=== PATIENT | male | born 1985 | race African-American/Black ===

== ENCOUNTER 2017-10-12 06:51 | Emergency (ER) | payer OTHER ==
[~2017-10-12] VITALS: Ht 182.9 cm; Wt 89.8 kg
[~2017-10-12 06:51] MED LIST: AMOXICILLIN 50500 MG PO; AUGMENTIN 875875 MG PO; NOHOMEMEDICATIONS; NORCO 5-325 TA1 EACH PO; PREDNISONE 20 M20 M1 PO; PREDNISONE 20 M20 MG PO; PREDNISONE50 MG PO; PROAIR HFA8.5 GM IH; PROVENTIL HFA6.7 G1 INH; VENTOLIN HFA 1818 GM INH
[2017-10-12 07:00] VITALS: BP 127/91
[2017-10-12] MEDS ORDERED: VENTOLIN HFA 1818 GM INH (07:09)
[2017-10-12] MEDS ORDERED: IPRATROPIU0.2 MG/1 M INH (07:09)
[2017-10-12] MEDS ORDERED: PREDNISONE 20 M20 MG PO (07:09)
[2017-10-12] MEDS ORDERED: ALBUTEROL2.5 MG/31 INH (07:09)
== END 2017-10-12 07:35 | disposition home or self-care (01) ==
LOC: ER 06:51
DX: J45.901 Unspecified asthma with (acute) exacerbation (principal); Z87.891 Personal history of nicotine dependence

== ENCOUNTER 2018-01-26 11:23 | Emergency (ER) | payer BC, OTHER ==
[~2018-01-26] VITALS: Ht 182.9 cm; Wt 93.0 kg
[~2018-01-26 11:23] MED LIST changes: +ALBUTEROL2.5 MG/31 INH; +IPRATROPIU0.2 MG/1 M INH
[2018-01-26 11:24] VITALS: BP 143/96
[2018-01-26] MEDS ORDERED: PREDNISONE 20 M20 MG PO (12:07)
[2018-01-26] MEDS ORDERED: VENTOLIN HFA 1818 GM INH (12:07)
== END 2018-01-26 12:20 | disposition home or self-care (01) ==
LOC: ER 11:23
DX: Z76.0 Encounter for issue of repeat prescription (principal); J45.901 Unspecified asthma with (acute) exacerbation; Z87.891 Personal history of nicotine dependence

== ENCOUNTER 2018-05-27 11:51 | Emergency (ER) | payer OTHER ==
[~2018-05-27] VITALS: Ht 182.9 cm; Wt 94.3 kg
[2018-05-27] MEDS ORDERED: VENTOLIN HFA 1818 GM INH (12:56)
[2018-05-27 13:06] VITALS: BP 129/86
== END 2018-05-27 13:00 | disposition home or self-care (01) ==
LOC: ER 11:51
DX: J45.901 Unspecified asthma with (acute) exacerbation (principal); Z76.0 Encounter for issue of repeat prescription; Z87.891 Personal history of nicotine dependence

== ENCOUNTER 2018-06-14 17:01 | Emergency (ER) | payer OTHER ==
[~2018-06-14] VITALS: Ht 182.9 cm; Wt 95.3 kg
[2018-06-14] MEDS ORDERED: PREDNISONE 20 M20 MG PO (18:10)
[2018-06-14 18:11] VITALS: BP 143/92
== END 2018-06-14 18:17 | disposition home or self-care (01) ==
LOC: ER 17:01
DX: J45.901 Unspecified asthma with (acute) exacerbation (principal); Z87.891 Personal history of nicotine dependence